=== PATIENT | female | born 1935 | race Caucasian/White ===

== ENCOUNTER 2020-09-23 01:56 | Day surgery (SDC) | payer MEDICARE, SELFPAY ==
[2020-09-09 13:38] VITALS: BMI 21.4
--- NOTE | 2020-09-09 15:36 | SUR.PREOP ---
Patient will be swabbed at the longterm for COVID on day of procedure prior to arrival. Patient removed from COVID grid.
[2020-09-23 11:55] VITALS: BP 184/82; PULSE 67; RESP 20; TEMP 36.9; O2SAT 98; BMI 22.4
[2020-09-23] MEDS: LACTATED RINGERS 1,000 ML 150 ML IV CONT (12:01)
--- NOTE | 2020-09-23 12:17 | WPDANESEPPF ---
Anes - Initial Pre Proc Eval Procedure: Operation Date: 09/23/20 13:00 Proposed Procedures p Esophagogastroduodenoscopy - Jarek Tafoya DO Date/Time: 09/23/20 12:17 Surgeon: Jarek Tafoya DO Pre Op Diagnosis: Gerd Patient Data Age: 85 Gender: F Height: 1.45 m Weight: 47 kg Last Vital Signs Temp 36.9 C 09/23/20 11:55 Pulse 67 09/23/20 11:55 Resp 20 09/23/20 11:55 BP 184/82 H 09/23/20 11:55 Pulse Ox 98 09/23/20 11:55 Allergies Allergy/AdvReac Type Severity Reaction Status Date / Time Sulfa (Sulfonamide Allergy Unknown Verified 09/23/20 11:54 Antibiotics) Home Medications Medication Instructions Recorded Confirmed Type amiodarone 100 mg PO DAILY 09/09/20 09/09/20 History atorvastatin 20 mg PO DAILY 09/09/20 09/09/20 History budesonide-formoterol [Symbicort] 2 puff INHALATION Q12H 09/09/20 09/09/20 History buspirone 7.5 mg PO TID 09/09/20 09/09/20 History citalopram 10 mg PO DAILY 09/09/20 09/09/20 History docusate sodium 100 mg PO BID 09/09/20 09/09/20 History donepezil 5 mg PO DAILY 09/09/20 09/09/20 History esomeprazole magnesium 40 mg PO BID 09/09/20 09/09/20 History ezetimibe 10 mg PO DAILY 09/09/20 09/09/20 History famotidine [Pepcid] 20 mg PO BID 09/09/20 09/09/20 History lidocaine 1 patch TOPICAL HS 09/09/20 09/09/20 History metoprolol tartrate 25 mg PO BID 09/09/20 09/09/20 History mirtazapine 15 mg PO HS 09/09/20 09/09/20 History montelukast 10 mg PO DAILY 09/09/20 09/09/20 History oxybutynin chloride 10 mg PO DAILY 09/09/20 09/09/20 History oxycodone-acetaminophen 1 tablet PO Q4H PRN 09/09/20 09/09/20 History polyethylene glycol 3350 [Miralax] 17 g PO DAILY 09/09/20 09/09/20 History tiotropium bromide [Spiriva with 2 cap INHALATION DAILY 09/09/20 09/09/20 History HandiHaler] vitamins A,C,[id number] 1 tablet PO DAILY 09/09/20 09/09/20 History [Ocuvite Preservision] Patient hx anesthesia problems: none Family hx anesthesia problems: none PMFSH Past Medical History Medical History (Updated 09/23/20 @ 12:17 by Kyle Coats DO) Anxiety ASD (atrial septal defect) COPD (chronic obstructive pulmonary disease) GERD (gastroesophageal reflux disease) Hiatal hernia Hyperlipidemia Hypertension Surgical History Surgical History (Updated 09/23/20 @ 07:33 by Kyle Coats DO) History of hysterectomy Social History Social History Smoking status: Never smoker Alcohol intake: never Substance use: never Living arrangements: [facility] Spiritual care concerns: No Anes - Eval Final PreProcedure Day of Procedure 09/23/20 12:17 Patient weight: normal Heart: regular rate and rhythm Lungs: clear to auscultation and normal air movement Airway: Mallampati scale class III Neurological: alert and oriented Last oral intake: >/= 8 hours ASA classification: III Emergent: no Anesthetic plan: proceed Anesthesia type and monitoring: general GIVS and standard monitoring Informed Consent: The patient's anesthetic plan and its attendant risks and benefits were discussed with the patient/family/POA. Questions were solicited and answers provided to the satisfaction of the patient/family/POA.
--- NOTE | 2020-09-23 12:52 | PM.IMHP ---
H&P: [facility] History of Present Illness Date/Time: 09/23/20 12:52 Chief Complaint: Reason for visit is EGD. Narrative: Reason for visit is EGD. This very pleasant lady seen in consultation at the request of the primary physician. Impression: The area very pleasant lady with a history of reflux disease. She is having dysphagia. Evaluate for lying ring or stricture. She does have a history of a hiatal hernia. Anxiety. ASD. Cardiac dysrhythmia. CKD. COPD. Dementia. HLD. HTN. Pulmonary hypertension. Recommendation: EGD. History: This very pleasant lady's being evaluated for history of reflux disease and hiatal hernia. She complains of dysphagia to solid foods. She has significant discomfort when she eats. She does have complaints of some lower abdominal discomfort. She describes it as a tenderness. Hematochezia melena and acholic stools at night. Fever, chills, weight loss And night sweats are denied. The patient is here for EGD to assess for lying ring or stricture. Physical examination: General: very pleasant patient in no acute distress. HEENT: Head was normocephalic sclerae is clear mouth without masses neck was supple. Heart: Rate rhythm regular without S3 or S4. Lungs: CTA. Abdomen: Soft with no guarding or rigidity. Bowel sounds were active. Neurologic: Cranial nerves 2 through 12 intact. No focal defects. No clonus. Musculoskeletal system: Revealed no joint tenderness or swelling no muscle atrophy. Extremities: Reveal no significant edema. Skin: Warm and dry with normal turgor. Mental status: intact. Patient is alert and oriented. Review of Systems Review of Systems: All systems reviewed & are unremarkable except as noted in HPI and below [facility] Past Medical History Medical History (Updated 09/23/20 @ 12:52 by Jarek Tafoya DO) Anxiety ASD (atrial septal defect) Cardiac dysrhythmia CKD (chronic kidney disease) COPD (chronic obstructive pulmonary disease) Dementia GERD (gastroesophageal reflux disease) Hiatal hernia Hyperlipidemia Hypertension Pulmonary hypertension Surgical History Surgical History (Updated 09/23/20 @ 07:33 by Kyle Coats DO) History of hysterectomy Social History Social History Smoking status: Never smoker Alcohol intake: never Substance use: never Living arrangements: [facility] Spiritual care concerns: No Meds Home Medications and Allergies Home Medications Medication Instructions Recorded Confirmed Type amiodarone 100 mg PO DAILY 09/09/20 09/09/20 History atorvastatin 20 mg PO DAILY 09/09/20 09/09/20 History budesonide-formoterol [Symbicort] 2 puff INHALATION Q12H 09/09/20 09/09/20 History buspirone 7.5 mg PO TID 09/09/20 09/09/20 History citalopram 10 mg PO DAILY 09/09/20 09/09/20 History docusate sodium 100 mg PO BID 09/09/20 09/09/20 History donepezil 5 mg PO DAILY 09/09/20 09/09/20 History esomeprazole magnesium 40 mg PO BID 09/09/20 09/09/20 History ezetimibe 10 mg PO DAILY 09/09/20 09/09/20 History famotidine [Pepcid] 20 mg PO BID 09/09/20 09/09/20 History lidocaine 1 patch TOPICAL HS 09/09/20 09/09/20 History metoprolol tartrate 25 mg PO BID 09/09/20 09/09/20 History mirtazapine 15 mg PO HS 09/09/20 09/09/20 History montelukast 10 mg PO DAILY 09/09/20 09/09/20 History oxybutynin chloride 10 mg PO DAILY 09/09/20 09/09/20 History oxycodone-acetaminophen 1 tablet PO Q4H PRN 09/09/20 09/09/20 History polyethylene glycol 3350 [Miralax] 17 g PO DAILY 09/09/20 09/09/20 History tiotropium bromide [Spiriva with 2 cap INHALATION DAILY 09/09/20 09/09/20 History HandiHaler] vitamins A,C,U-eujb-[id number] 1 tablet PO DAILY 09/09/20 09/09/20 History [Ocuvite Preservision] Allergies Allergy/AdvReac Type Severity Reaction Status Date / Time Sulfa (Sulfonamide Allergy Unknown Verified 09/23/20 11:54 Antibiotics) Vital Signs Vital Signs - 24 hr 09/23/20 11:55 Temper
[2020-09-23] MEDS: BENZOCAINE (*SP) 60 ML SPRAY CAN (HURRICAINE) 1 SPRAY MUCOUS MEM (13:04)
--- NOTE | 2020-09-23 13:07 | SUR.OPER ---
1300 DENTURES PLACED IN DENTURE CUP AND PUT IN THE POST-OP RN DESK. PATIENT REQUEST'S DENTURES SOON SHE WAKES UP.
[2020-09-23 13:13] VITALS: BP 137/75; PULSE 74; RESP 14; O2SAT 98
[2020-09-23 13:23] VITALS: BP 130/77; PULSE 60; RESP 19; O2SAT 100
[2020-09-23 13:33] VITALS: BP 143/72; PULSE 62; RESP 24; O2SAT 99
== END 2020-09-23 13:49 | disposition home or self-care (01) ==
PROVIDERS: PCP Internal Medicine; Visit Provider Internal Medicine Gastroenterology
PROC: 0DJ08ZZ Inspection of Upper Intestinal Tract, Via Natural or Artificial Opening Endoscopic (ICD-10-PCS; CPT 43235; principal; 2020-09-23 13:00)
DX: R13.10 Dysphagia, unspecified (principal); K29.60 Other gastritis without bleeding; K31.84 Gastroparesis; K22.4 Dyskinesia of esophagus; K21.9 Gastro-esophageal reflux disease without esophagitis; E78.5 Hyperlipidemia, unspecified; Q21.1 Atrial septal defect; F03.90 Unspecified dementia, unspecified severity, without behavioral disturbance, psychotic disturbance, mood disturbance, and anxiety; J44.9 Chronic obstructive pulmonary disease, unspecified; I12.9 Hypertensive chronic kidney disease with stage 1 through stage 4 chronic kidney disease, or unspecified chronic kidney disease; N18.9 Chronic kidney disease, unspecified; I27.20 Pulmonary hypertension, unspecified
CPT/HCPCS: 43239; 87081; J2704; J7120